=== PATIENT | female | born 1955 | race Caucasian/White ===

== ENCOUNTER 2022-07-20 09:48 | Outpatient (CLI) | payer OTHER | END 2022-07-20 09:49 | disposition home or self-care (01) | LOC: CSHMAMMO 09:48 | PROVIDERS: ATTEND Internal Medicine | DX: Z12.31 Encounter for screening mammogram for malignant neoplasm of breast (principal); Z80.3 Family history of malignant neoplasm of breast | CPT/HCPCS: 77063; 77067 ==

== ENCOUNTER 2024-02-01 10:52 | Outpatient (CLI) | payer MEDICARE | END 2024-02-01 10:53 | disposition home or self-care (01) | LOC: CSHMAMMO 10:52 | PROVIDERS: ATTEND Internal Medicine | DX: Z78.0 Asymptomatic menopausal state (principal); M85.89 Other specified disorders of bone density and structure, multiple sites | CPT/HCPCS: 77080 ==